=== PATIENT | female | born 1975 | race Caucasian/White ===

== ENCOUNTER 2019-06-12 01:27 | Emergency (ER) | payer MEDICARE, MEDICAID, SELFPAY ==
[2019-06-12 01:30] VITALS: BP 132/79; PULSE 72; RESP 14; TEMP 37; O2SAT 98; BMI 24.5
[2019-06-12] MEDS: SODIUM CHLORIDE 0.9% 1,000 ML 1000 ML IV ×2 (01:41→04:47)
[2019-06-12] MEDS: ONDANSETRON 4 MG/2 ML INJ IV ×2 (01:41→03:06)
--- NOTE | 2019-06-12 01:45 | ED_ITS ---
HPI - Abdominal Pain General Chief Complaint: Abdominal Pain Stated Complaint: vomiting x2 days Time Seen by Provider: 06/12/19 01:31 Source: patient Mode of arrival: Ambulatory Limitations: no limitations History of Present Illness HPI narrative: 44-year-old female nonsmoker with history of Crohn's presents with a chief complaint of nausea and vomiting with generalized abdominal pain over the past 2 days. She is currently under the care of a GI specialist in [place] but preparing to switch back to her [place] doctor. She denies any fever chills and is not dizzy nor weak or lightheaded. She has been having some loose stools and is unclear if there has been any blood but certainly not significant amount. MD complaint: abdominal pain Onset (ago): day(s) Pain Consistency: intermittent Location: diffuse Severity: moderate Quality: cramping Radiation: none Migration to: no migration Exacerbating factors: nothing Associated symptoms: nausea and vomiting Related Data Previous Rx's Medication Instructions Recorded ondansetron 4 mg PO TID-QID PRN #10 tab 06/12/19 Allergies Allergy/AdvReac Type Severity Reaction Status Date / Time adalimumab [From Humira] Allergy Verified 06/12/19 01:36 infliximab [From Remicade] Allergy Verified 06/12/19 01:36 Sulfa (Sulfonamide Allergy Verified 06/12/19 01:36 Antibiotics) Review of Systems Constitutional Constitutional: Denies chills, Denies fatigue, Denies fever(s), Denies frequent falls, Denies lethargy and Denies weakness Eyes Eyes: Denies change in vision, Denies eye discharge, Denies irritation and Denies loss of vision ENT Ears, Nose, Mouth, and Throat: Denies change in voice, Denies dizziness, Denies neck pain, Denies sore throat and Denies throat swelling Cardiovascular Cardiovascular: Denies chest pain, Denies irregular heart rhythm, Denies lightheadedness, Denies palpitations, Denies dyspnea, Denies dyspnea on exertion and Denies orthopnea Respiratory Respiratory: Denies cough, Denies dyspnea, Denies dyspnea on exertion and Denies wheezing Gastrointestinal Gastrointestinal: Reports abdominal pain, Denies change in bowel habits, Reports diarrhea, Reports nausea and Reports vomiting Genitourinary Genitourinary: Denies hematuria, Denies flank pain, Denies urinary incontinence and Denies urinary urgency Musculoskeletal Musculoskeletal: Denies back pain, Denies muscle weakness, Denies neck pain, Denies numbness and Denies tingling Integumentary/Breasts Skin/Breast: Denies pruritus, Denies erythema, Denies rash and Denies wounds Neurologic Neurologic: Denies behavioral changes, Denies confusion, Denies dizziness, De nies frequent falls, Denies loss of vision, Denies numbness, Denies tingling and Denies weakness Psychiatric Psychiatric: Denies anxiety, Denies behavioral changes, Denies confusion, Denies depression, Denies homicidal ideation and Denies suicidal ideation Endocrine Endocrine: Denies fatigue, Denies flushing and Denies palpitations Hematologic/Lymphatic Hematologic/Lymphatic: Denies easy bruising Allergic/Immunologic Allergic/Immunologic: Denies urticaria, Denies throat swelling and Denies wheezing Patient History Social History Smoking Status: Unknown if ever smoked alcohol intake frequency: holidays/special occasions only Substance Use Type: does not use Exam Narrative Exam Narrative: GENERAL: [44] year old patient appears stated age. Well-nourishe d, well-developed patient, in mild distress. Holding an emesis basin HEAD: Atraumatic. Normocephalic. EYES: Pupils equal round and reactive. Extraocular motions intact. No scleral icterus. No injection or drainage. ENT: Nose without bleeding, purulent drainage. Throat without erythema, tonsillar hypertrophy or exudate. Airway patent. NECK: Trachea midline. Non tender CARDIOVASCULAR: Regular rate and rhythm without murmurs, gallops, or rubs. RESPIRATORY: Clear to auscultation. Breath sounds equal bilaterally. No wheezes, rales, or rhonchi. GASTROINTESTINAL: Abdomen soft, mild generalized tenderness, nondistended. No guarding or peritoneal signs EXTREMITIES: No edema or joint tenderness. BACK: Nontender without deformity or crepitance. No flank tenderness. NEURO: AOx3. SKIN: No rash or erythema of visible areas Initial Vital Signs Initial Vital Signs: Vital Signs Temperature 98.6 F 06/12/19 01:30 Pulse Rate 72 06/12/19 01:30 Respiratory Rate 14 06/12/19 01:30 Blood Pressure 132/79 06/12/19 01:30 Pulse Oximetry 98 06/12/19 01:30 Course Orders Ordered: ED Orders 06/12/19 01:43 Complete Blood Count AUTO DIFF Stat Comprehensive Metabolic Panel Stat Lipase Stat Discontinued Medications Hydrocodone Bitart/Acetaminophen (Vicodin 5/325 Prepack) 1 bottle MISC SEEINSTR ONE Stop: 06/12/19 05:29 Hydromorphone HCl (Dilaudid) 0.5 mg IV NOW ONE Stop: 06/12/19 04:44 Last Admin: 06/12/19 04:47 Dose: 0.5 mg Documented by: COLLEEN Sodium Chloride (Normal Saline 0.9%) 1,000 mls @ 1,000 mls/hr IV BOLUS ONE Stop: 06/12/19 02:31 Last Infusion: 06/12/19 03:19 Dose: 0 mls/hr Documented by: Admin: 06/12/19 01:41 Dose: 1,000 mls/hr Documented by: ALEX Sodium Chloride (Normal Saline 0.9%) 1,000 mls @ 1,000 mls/hr IV BOLUS ONE Stop: 06/12/19 05:26 Last Admin: 06/12/19 04:47 Dose: 1,000 mls/hr Documented by: COLLEEN Ondansetron HCl (Zofran) 4 mg IV NOW ONE Stop: 06/12/19 01:33 Last Admin: 06/12/19 01:41 Dose: 4 mg Documented by: ALEX Ondansetron HCl (Zofran) 4 mg IV NOW ONE Stop: 06/12/19 03:01 Last Admin: 06/12/19 03:06 Dose: 4 mg Documented by: COLLEEN Ondansetron HCl (Zofran Odt Prepack) 1 bottle MISC SEEINSTR ONE Stop: 06/12/19 05:29 Vital Signs Vital signs: Vital Signs - 8 hr 06/12/19 01:30 06/12/19 03:00 Temperature 98.6 F Pulse Rate 72 61 Respiratory Rate 14 Blood Pressure 132/79 Pulse Oximetry 98 96 MDM - Abdominal Pain Lab Data Result diagrams: 06/12/19 01:43 06/12/19 01:43 Labs: Lab Results 06/12/19 06/12/19 Range/Units 01:43 01:43 WBC 13.3 H (4.5-11.0) X10^3/uL RBC 5.30 H (4.0-5.2) X10^6/uL Hgb 15.2 (12.0-16.0) g/dL Hct 44.8 (36-46) % MCV 84.6 (80-100) fL MCH 28.6 (26-34) PG MCHC 33.8 (30-36) % RDW 14.9 H (11.6-14.8) % Plt Count 469 H (150-400) X10^3/uL Neut % (Auto) 83.1 H (50-75) % Lymph % (Auto) 7.4 L (25-40) % Bert[place] % (Auto) 9.2 (3-14) % Eos % (Auto) 0.0 L (2-4) % Baso % (Auto) 0.3 (0-2) % Neut # (Auto) 05510 H (9911-3098) /uL Lymph # (Auto) 1000 L (5497-1869) /uL [place] # (Auto) 1200 H (0-900) /uL Eos # (Auto) 0 (0-450) /uL Baso # (Auto) 0 (0-100) /uL Sodium 144 (137-145) mmol/L Potassium 3.3 L (3.4-5.1) mmol/L Chloride 97 L (98-107) mmol/L Carbon Dioxide 29 (22-32) mmol/L BUN 21 H (7-17) mg/dL Creatinine 1.10 H (0.52-1.04) mg/dL Estimated GFR 54.2 L (>60) mL/min BUN/Creatinine Ratio 19.1 (6-22) Glucose 141 H (70-100) mg/dL Calcium 10.2 (8.4-10.2) mg/dL Total Bilirubin 1.0 (0.2-1.3) mg/dL AST 28 (14-36) IU/L ALT 27 (<35) IU/L Alkaline Phosphatase 83 (38-126) U/L Total Protein 9.5 H (6.3-8.2) g/dL Albumin 5.4 H (3.5-5.0) g/dL Globulin 4.1 (1.7-4.1) g/dL Albumin/Globulin Ratio 1.3 (1.0-2.8) Lipase 98 (23-300) U/L [facility] Narrative Medical decision making narrative: Multiple etiologies for patient's symptoms considered including: [Viral gastroenteritis versus Crohn's flare versus bowel obstruction versus other] Patient's symptoms improved or duration of stay with above-stated therapies. Findings and discharge diagnosis discussed with patient/family followed by verbalization of understanding Return precautions discussed with patient/family whom verbalize understanding. Discharge Plan Departure Patient Disposition: Home Clinical Impression: Vomiting Qualifiers: Vomiting type: unspecified Vomiting Intractability: non-intractable Nausea presence: with nausea Qualified Code(s): R11.2 - Nausea with vomiting, unspecified Crohn's disease Qualifiers: Gastrointestinal tract location: unspecified location Digestive disease complication type: unspecified complication Qualified Code(s): K50.919 - Crohn's disease, unspecified, with unspecified complications Instructions: Crohn's Disease (Alternative Therapy), DI for Vomiting -- Adult Activity Restrictions/Additional Instructions: *You have been diagnosed with [vomiting and Crohn's flare] *What to do: *Take medications as directed *Follow up with your primary care provider in 2-3 days, call for an appointment. Let them know you were seen in the Emergency Department and that we ask that you be seen in follow up *Return to ER if you should have any new, worsening or concerning symptoms Prescriptions: New ondansetron 4 mg tablet,disintegrating 4 mg PO TID-QID PRN (Reason: nausea and vomiting) Qty: 10 RF: 0 Referrals: Milton Partida MD [Primary Care Provider] -
[2019-06-12 02:00] LABS: Add Manual Diff / Slide Review NO; Basophils Absolute Auto 0 /uL (0-100); Basophils Percent Auto 0.3 % (0-2); Eosinophils Absolute Auto 0 /uL (0-450); Hematocrit 44.8 % (36-46); Hemoglobin 15.2 g/dL (12.0-16.0); Lymphocytes Absolute Auto 1000 /uL (1100-4500); Lymphocytes Percent Auto 7.4 % (25-40); Mean Corpuscular HGB Conc 33.8 % (30-36); Mean Corpuscular Hemoglobin 28.6 PG (26-34); Mean Corpuscular Volume 84.6 fL (80-100); Monocytes Absolute Auto 1200 /uL (0-900); Monocytes Percent Auto 9.2 % (3-14); Neutrophils Absolute Auto 11100 /uL (1500-7000); Neutrophils Percent Auto 83.1 % (50-75); Platelet Count 469 X10^3/uL (150-400); Red Cell Distribution Width 14.9 % (11.6-14.8); White Blood Cell Count 13.3 X10^3/uL (4.5-11.0)
[2019-06-12 02:04] LABS: Alanine Aminotransferase 27 IU/L (<35); Albumin 5.4 g/dL (3.5-5.0); Albumin Globulin Ratio 1.3 (1.0-2.8); Alkaline Phosphatase 83 U/L (38-126); Aspartate Aminotransferase 28 IU/L (14-36); BUN Creatinine Ratio 19.1 (6-22); Blood Urea Nitrogen 21 mg/dL (7-17); Calcium 10.2 mg/dL (8.4-10.2); Carbon Dioxide 29 mmol/L (22-32); Chloride 97 mmol/L (98-107); Estimated Glomerular Filt Rate 54.2 mL/min (>60); Globulin 4.1 g/dL (1.7-4.1); Glucose 141 mg/dL (70-100); HEMOLYSIS 16 (0-50); Lipase 98 U/L (23-300); Potassium 3.3 mmol/L (3.4-5.1); Sodium 144 mmol/L (137-145); Total Protein 9.5 g/dL (6.3-8.2)
[2019-06-12 03:00] VITALS: PULSE 61; O2SAT 96
[2019-06-12] MEDS: HYDROMORPHONE 0.5 MG INJ IV (04:47)
[2019-06-12] MEDS: HYDROCODONE/ACET 5/325 PREPACK 1 BOTTLE MISC (06:20)
[2019-06-12] MEDS: ONDANSETRON 4 MG ODT PREPACK 1 BOTTLE MISC (06:20)
[2019-06-12 06:32] VITALS: BP 121/71; PULSE 66; RESP 14; O2SAT 99
== END 2019-06-12 06:43 | disposition home or self-care (01) ==
PROVIDERS: Emergency Provider Emergency Medicine; PCP Family Medicine
DX: K50.919 Crohn's disease, unspecified, with unspecified complications (principal); R11.2 Nausea with vomiting, unspecified
CPT/HCPCS: 80053; 83690; 85025; 96374; 96375; 96376; 99283; 99284; J1170; J2405

== ENCOUNTER 2019-06-16 10:57 | Emergency (ER) | payer MEDICARE, SELFPAY ==
[2019-06-16 11:00] VITALS: BP 122/80; PULSE 112; RESP 18; TEMP 36.9; O2SAT 97
[2019-06-16 11:37] LABS: Ur Creatinine Normal (Normal); Ur Specific Gravity Normal (Normal); Urine pH Normal (Normal)
[2019-06-16 11:38] LABS: UR Morphine/Opiate cutoff 300 Negative (Negative); Urine Amphetamines Negative (Negative); Urine Barbiturates Negative (Negative); Urine Benzodiazepines Negative (Negative); Urine Cocaine Negative (Negative); Urine MDMA Negative (Negative); Urine Methadone Negative (Negative); Urine Methamphetamines Negative (Negative); Urine Oxycodone Negative (Negative); Urine Phencyclidine Negative (Negative); Urine Tetrahydrocannabinol Positive (Negative); Urine Tricyclic Antidepressant Negative (Negative)
[2019-06-16 11:48] LABS: Add Manual Diff / Slide Review NO; Basophils Absolute Auto 100 /uL (0-100); Basophils Percent Auto 0.9 % (0-2); Eosinophils Absolute Auto 100 /uL (0-450); Hematocrit 36.5 % (36-46); Hemoglobin 12.3 g/dL (12.0-16.0); Lymphocytes Absolute Auto 1700 /uL (1100-4500); Lymphocytes Percent Auto 29.1 % (25-40); Mean Corpuscular HGB Conc 33.8 % (30-36); Mean Corpuscular Hemoglobin 28.5 PG (26-34); Mean Corpuscular Volume 84.3 fL (80-100); Monocytes Absolute Auto 500 /uL (0-900); Monocytes Percent Auto 8.3 % (3-14); Neutrophils Absolute Auto 3400 /uL (1500-7000); Neutrophils Percent Auto 59.7 % (50-75); Platelet Count 316 X10^3/uL (150-400); Red Blood Cell Count 4.34 X10^6/uL (4.0-5.2); Red Cell Distribution Width 14.5 % (11.6-14.8); White Blood Cell Count 5.7 X10^3/uL (4.5-11.0)
--- NOTE | 2019-06-16 11:50 | PC.NURSE ---
MEDICINE TEACHER: pt is sleeping in room.
[2019-06-16 12:01] LABS: Acetaminophen < 10 ug/mL (10-30); Alanine Aminotransferase 24 IU/L (<35); Albumin Globulin Ratio 1.5 (1.0-2.8); Alkaline Phosphatase 58 U/L (38-126); Aspartate Aminotransferase 23 IU/L (14-36); BUN Creatinine Ratio 11.4 (6-22); Bilirubin Total 0.4 mg/dL (0.2-1.3); Blood Urea Nitrogen 8 mg/dL (7-17); Calcium 8.5 mg/dL (8.4-10.2); Carbon Dioxide 30 mmol/L (22-32); Chloride 102 mmol/L (98-107); Estimated Glomerular Filt Rate > 60.0 mL/min (>60); Ethanol (ETOH) < 10 mg/dL; Globulin 2.6 g/dL (1.7-4.1); Glucose 84 mg/dL (70-100); HEMOLYSIS < 15 (0-50); Potassium 3.4 mmol/L (3.4-5.1); Salicylate < 1.0 mg/dL (<20); Sodium 139 mmol/L (137-145); Total Protein 6.6 g/dL (6.3-8.2)
--- NOTE | 2019-06-16 12:07 | ED.PSYCH ---
HPI - Psych General Chief Complaint: Psychiatric Symptoms Stated Complaint: suicidal Time Seen by Provider: 06/16/19 12:07 Source: patient Mode of arrival: Ambulatory History of Present Illness complaint: suicidal ideation and feels depressed Onset (ago): month(s) Duration: getting worse Relieving factors: none Exacerbating factors: none If self harm: admits thoughts of self harm Details of plan: 44-year-old woman with a history of Crohn's disease and ankylosing spondylitis feelings of hopelessness and helplessness and regarding her chronic medical issues knowing that they are never going to get better and living with chronic pain. She currently is on 10 mg of oxycodone up to 4 times a day has been on the same dose for the last 6 years with no evidence of opiate use disorder. Is frustrated enough that she feels that she cannot keep herself safe at this point and states that she will jump [place] the [place]. Is tearful but appropriate been asking for help. Willing to stay in an inpatient facility Related Data Home Medications Medication Instructions Recorded Confirmed calcium carbonate [Tums] 200 mg PO DAILY 06/16/19 06/16/19 omeprazole magnesium [Prilosec OTC] 20 mg PO DAILY PRN 06/16/19 06/16/19 oxycodone 10 mg PO Q4-6H PRN 06/16/19 06/16/19 Previous Rx's Medication Instructions Recorded ondansetron 4 mg PO TID-QID PRN #10 tab 06/12/19 Allergies Allergy/AdvReac Type Severity Reaction Status Date / Time adalimumab [From Humira] Allergy Verified 06/12/19 01:36 infliximab [From Remicade] Allergy Verified 06/12/19 01:36 Sulfa (Sulfonamide Allergy Verified 06/12/19 01:36 Antibiotics) Review of Systems Review of Systems Narrative: No weight loss, chronic pain, no self-harm, Negative except for HPI, otherwise unremarkable Patient History Social History Smoking Status: Unknown if ever smoked Smoking Status: Unknown if ever smoked alcohol intake frequency: holidays/special occasions only Substance Use Type: does not use Exam Narrative Exam Narrative: Healthy appearing woman in no acute distress. Able to give a complete and full history cooperative. Well-nourished well-developed HEENT: Moist mucous membranes, normal sclera with reactive pupils, Neck: No JVD, supple Respiratory: Lungs are clear to auscultation, no wheezing no rales no rhonchi. Full and symmetrical air movement Cardiac: Regular rate and rhythm no murmurs no bruits Abdomen: Soft nontender nondistended normal bowel tones Skin: Warm and dry, no rashes Neurologic: Grossly neurologically intact with no obvious asymmetries or abnormalities Extremities: No trauma, well perfused Psych: appropriate insight and affect, sad but cooperative. Initial Vital Signs Initial Vital Signs: Vital Signs Temperature 98.4 F 06/16/19 11:00 Pulse Rate 112 H 06/16/19 11:00 Respiratory Rate 18 06/16/19 11:00 Blood Pressure 122/80 06/16/19 11:00 Pulse Oximetry 97 06/16/19 11:00 Course Course Course Narrative: Patient remains suicidal. She does not feel safe going home and states that if she were to be discharged she would find a way to [place]. Have just spoken with the health and social care teacher who will begin to look for beds for voluntary admission for suicidal ideation Orders Ordered: ED Orders 06/16/19 11:00 Urine Microscopic Stat 06/16/19 11:03 Urine Drug Screen, Rapid Stat 06/16/19 11:39 Acetaminophen Stat Complete Blood Count AUTO DIFF Stat Comprehensive Metabolic Panel Stat Ethanol (ETOH) Stat Free T4, Direct Thyroxine Stat Salicylate Stat Thyroid Stimulating Hormone Stat 06/16/19 12:21 Consult to [facility] - Engineering Technical Specialist Stat Discontinued Medications Lorazepam (Ativan) 0.5 mg PO NOW ONE Stop: 06/16/19 16:58 Last Admin: 06/16/19 17:39 Dose: 0.5 mg Documented by: BTONEHarleen Oxycodone HCl (Percolone) 10 mg PO NOW ONE Stop: 06/16/19 16:58 Last Admin: 06/16/19 17:38 Dose: 10 mg Documented by: BTONER Vital Signs Vital signs: Vital Signs - 8 hr 06/16/19 11:00 Temperature 98.4 F Pulse Rate 112 H Respiratory Rate 18 Blood Pressure 122/80 Pulse Oximetry 97 MDM - Psych Differential Diagnosis Differential diagnosis: Likely suicidal ideation and depression Medical Records Attestation: I reviewed the patient's medical records. Lab Data Result diagrams: 06/16/19 11:39 06/16/19 11:39 Labs: Lab Results 06/16/19 06/16/19 06/16/19 Range/Units 11:00 11:03 11:39 WBC 5.7 (4.5-11.0) X10^3/uL RBC 4.34 (4.0-5.2) X10^6/uL Hgb 12.3 (12.0-16.0) g/dL Hct 36.5 (36-46) % MCV 84.3 (80-100) fL MCH 28.5 (26-34) PG MCHC 33.8 (30-36) % RDW 14.5 (11.6-14.8) % Plt Count 316 (150-400) X10^3/uL Neut % (Auto) 59.7 (50-75) % Lymph % (Auto) 29.1 (25-40) % [place] % (Auto) 8.3 (3-14) % Eos % (Auto) 2.0 (2-4) % Baso % (Auto) 0.9 (0-2) % Neut # (Auto) 3400 (6471-9589) /uL Lymph # (Auto) 1700 (7854-1027) /uL [place] # (Auto) 500 (0-900) /uL Eos # (Auto) 100 (0-450) /uL Baso # (Auto) 100 (0-100) /uL Sodium (137-145) mmol/L Potassium (3.4-5.1) mmol/L Chloride (98-107) mmol/L Carbon Dioxide (22-32) mmol/L BUN (7-17) mg/dL Creatinine (0.52-1.04) mg/dL Estimated GFR (>60) mL/min BUN/Creatinine Ratio (6-22) Glucose (70-100) mg/dL Calcium (8.4-10.2) mg/dL Total Bilirubin (0.2-1.3) mg/dL AST (14-36) IU/L ALT (<35) IU/L Alkaline Phosphatase (38-126) U/L Total Protein (6.3-8.2) g/dL Albumin (3.5-5.0) g/dL Globulin (1.7-4.1) g/dL Albumin/Globulin Ratio (1.0-2.8) TSH (0.47-4.68) uIU/mL Free T4 (0.78-2.19) ng/dL Urine RBC 10-30/hpf H (0-5/HPF) Urine WBC 0-1/hpf (0-5/HPF) Ur Squamous Epith Cells 1-5 /hpf (0-5/HPF) Calcium Oxalate Crystal Moderate H Urine Bacteria None seen (None) Urine Mucus 2+ H (Negative) Ur Culture Indicated? Cult not indicated Salicylates (<20) mg/dL U Morph 300 ng/mL cutoff Negative (Negative) Ur Oxycodone Screen Negative (Negative) Urine Methadone Screen Negative (Negative) Acetaminophen (10-30) ug/mL Ur Barbiturates Screen Negative (Negative) U Tricyclic Antidepress Negative (Negative) Ur Phencyclidine Scrn Negative (Negative) Ur Amphetamines Screen Negative (Negative) U Methamphetamines Scrn Negative (Negative) Ur MDMA Scrn (Ecstasy) Negative (Negative) U Benzodiazepines Scrn Negative (Negative) Urine Cocaine Screen Negative (Negative) U Marijuana (THC) Screen Positive H (Negative) Ethyl Alcohol ( - 10) mg/dL 06/16/19 06/16/19 Range/Units 11:39 11:39 WBC (4.5-11.0) X10^3/uL RBC (4.0-5.2) X10^6/uL Hgb (12.0-16.0) g/dL Hct (36-46) % MCV (80-100) fL MCH (26-34) PG MCHC (30-36) % RDW (11.6-14.8) % Plt Count (150-400) X10^3/uL Neut % (Auto) (50-75) % Lymph % (Auto) (25-40) % [place] % (Auto) (3-14) % Eos % (Auto) (2-4) % Baso % (Auto) (0-2) % Neut # (Auto) (5812-3933) /uL Lymph # (Auto) (5479-2276) /uL [place] # (Auto) (0-900) /uL Eos # (Auto) (0-450) /uL Baso # (Auto) (0-100) /uL Sodium 139 (137-145) mmol/L Potassium 3.4 (3.4-5.1) mmol/L Chloride 102 (98-107) mmol/L Carbon Dioxide 30 (22-32) mmol/L BUN 8 (7-17) mg/dL Creatinine 0.70 (0.52-1.04) mg/dL Estimated GFR > 60.0 (>60) mL/min BUN/Creatinine Ratio 11.4 (6-22) Glucose 84 (70-100) mg/dL Calcium 8.5 (8.4-10.2) mg/dL Total Bilirubin 0.4 (0.2-1.3) mg/dL AST 23 (14-36) IU/L ALT 24 (<35) IU/L Alkaline Phosphatase 58 (38-126) U/L Total Protein 6.6 (6.3-8.2) g/dL Albumin 4.0 (3.5-5.0) g/dL Globulin 2.6 (1.7-4.1) g/dL Albumin/Globulin Ratio 1.5 (1.0-2.8) TSH 0.75 (0.47-4.68) uIU/mL Free T4 1.27 (0.78-2.19) ng/dL Urine RBC (0-5/HPF) Urine WBC (0-5/HPF) Ur Squamous Epith Cells (0-5/HPF) Calcium Oxalate Crystal Urine Bacteria (None) Urine Mucus (Negative) Ur Culture Indicated? Salicylates < 1.0 (<20) mg/dL U Morph 300 ng/mL cutoff (Negative) Ur Oxycodone Screen (Negative) Urine Methadone Screen (Negative) Acetaminophen < 10 L (10-30) ug/mL Ur Barbiturates Screen (Negative) U Tricyclic Antidepress (Negative) Ur Phencyclidine Scrn (Negative) Ur Amphetamines Screen (Negative) U Methamphetamines Scrn (Negative) Ur MDMA Scrn (Ecstasy) (Negative) U Benzodiazepines Scrn (Negative) Urine Cocaine Screen (Negative) U Marijuana (THC) Screen (Negative) Ethyl Alcohol < 10 ( - 10) mg/dL Point of Care Testing Test Results Negative Urine Dip Bedside Urine Glucose Negative Bedside Urine Bilirubin - Negative Bedside Urine Ketone - Negative Urine Specific [place] 1.015 Bedside Urine Occult Blood +++ Bedside Urine pH 6.0 Bedside Urine Protein +/- 15 Bedside Urine Urobilinogen - Negative Bedside Urine Nitrite - Negative Bedside Urine Leukocytes - Negative Esterase MDM Narrative Medical decision making narrative: Suicidal ideation with increasing helplessness and hopelessness. Cannot contract for safety and is willing to avail herself to inpatient psychiatric care. I believe that this is the most appropriate treatment at this time. Social Work has been involved plan and chart have been reviewed by [facility]. She has been accepted. Will be transferred via ambulance. Discharge Plan Departure Patient Disposition: Xfer Psychiatric Hosp Clinical Impression: Suicidal ideation Crohn's disease Qualifiers: Gastrointestinal tract location: unspecified location Digestive disease complication type: without complication Qualified Code(s): K50.90 - Crohn's disease, unspecified, without complications Ankylosing spondylitis Qualifiers: Ankylosing spondylitis location: unspecified site of spine Qualified Code(s): M45.9 - Ankylosing spondylitis of unspecified sites in spine Chronic pain Qualifiers: Chronic pain type: other chronic pain Qualified Code(s): G89.29 - Other chronic pain Referrals: Milton Partida MD [Primary Care Provider] -
[2019-06-16 12:23] LABS: Free T4, Direct Thyroxine 1.27 ng/dL (0.78-2.19)
[2019-06-16 12:37] LABS: Thyroid Stimulating Hormone 0.75 uIU/mL (0.47-4.68)
[2019-06-16 13:51] LABS: Bacteria Urine None Seen
[2019-06-16 14:05] LABS: RBC Urine 10-30/HPF (0-5/HPF); Squamous Epithelial Cell Urine 1-5 /HPF (0-5/HPF); WBC Urine 0-1/HPF (0-5/HPF)
[2019-06-16 14:06] LABS: Calcium Oxalate Crystals Urine Moderate; Culture Indicated Urine Cult Not Indicated; Mucus Urine 2+ (Negative)
--- NOTE | 2019-06-16 16:07 | CM.SWNOTE ---
director social welfare Note: EMR reviewed: Patient is a 44 yr old female who came into the ED today with S.I. and a plan to [place]. CM/RN met with patient at the bedside and explained CM/RN role. Patient was alert and oriented x3 during CM visit. Patient had a depressed and sad affect with slowed speech. Patient has been feeling sad for the last 6 months but really started feeling suicidal after coming in to the ED with her Chrones flare on 06/12/2019. Patient stated since then she has had non-stop feeling of wanting to hurt her self. patient stated she has never been had a inpatient psychiatric hospitalization. Patient is not currently taking any psychiatric medications. Patient doesn't have a psychologist or a psychiatrist and has not seen a flight agent for many years. Patient has a hx of depression and anxiety but not SI. I: Medicare Plan: Cm/RN will call to try and find a voluntary inpatient Psychiatric treatment placement for patent. LOADING SHOVEL OILER - Rubber Goods Tester Assessment LOADING SHOVEL OILER - Rubber Goods Tester Assessment Start: 06/16/19 15:52 Freq: Status: Active Protocol: Document 06/16/19 15:52 (Rec: 06/16/19 16:06 [email or web address]) LOADING SHOVEL OILER/Rubber Goods Tester Assessment Time Spent with Patient Start date 06/16/19 Visit Start Time 03:00 End date 06/16/19 Visit End Time 16:00 Total time Care Management spent on 120min patient visit-in minutes Mental Health Screening Include Onset, Duration, Intensity Presenting Problem Patient came into the ED with SI and [place] to [place]. Precipitating Event(s) Patient has Chrones disease and had a flare up on 2018 which brought her into the ED. Patient stated that she has been feeling very depressed and thoughts of Suicide have been constant since then. Also patient stated that she lost her house 6 months ago and has been homeless or renting a room at friends houses ever since. Current Behavioral Health Provider(s) Patient doesn't currently have Include Facility, Provider, Ph. # a mental health provider Psych. Hx Mental Health and Chemical Patient does smoke marjuana Dependency but denies all other substance abuse Family Hx of Behavioral Abuse patient was adopted and is not sure about her biological parents medical and behavioral health history Psychiatric Hospitalizations (date(s)/ none location) Support System(s) Patient has a boyfriend Bahman . School/Work Patient is disabled and not working Mental Status Orientation (Person/Place/Time) Patient was alert and oriented x3 at time of CM/RN visit Affect Patient had a flat and sad affect with a very depressed mood. Thought Content - Specify/Describe NA Obsessions, Delusions, Hallucinations Thought Processes (Wyhbfwh-Wffiyjea-Fwyu patients thought process was Pbzdfyke-Chdqtuhu-Htlxzkxroc- logical and coherent Lyfrmavgyqkctz-Dtljznh-Volcuosfynqs- Thought Blocking) Speech (Kckudy-Xngm-Duxdsaa-Rapid-Soft- Slowed Loud-Pressured) Motor (Ctkncn-Hiftkevbu-Fira-Other) slow Insight (Present-Partially Present- Present Impaired) Impulse Control (Adequate-Impaired) adequate Memory (Iswwapxsr-Iglpcy-Rvosny, intact Impaired-Intact) Concentration (Intact-Impaired) intact- but was excessivly sleepy and patient stated she is just exhausted. Attention (Intact-Impaired) intact Behavior (Appropriate-Inappropriate) appropriate Risk Assessment Suicidal Ideation (Plan) Yes Homicidal Ideation (Plan) No Comment Patients stated she has been having constant SI and has a plan on how she wants to . Patient stated since she doesn 't have a car she would either take the [employer] transit -free bus or [place] h[place] and jump [place].
[2019-06-16] MEDS: OXYCODONE IR 5 MG TABLET 10 MG PO (17:38)
[2019-06-16] MEDS: LORazepam 0.5 MG TABLET PO (17:39)
[2019-06-16 18:34] VITALS: BP 140/85; PULSE 85; RESP 14; O2SAT 96
== END 2019-06-16 18:50 ==
PROVIDERS: Emergency Provider Emergency Medicine; PCP Family Medicine
DX: R45.851 Suicidal ideations (principal); K50.90 Crohn's disease, unspecified, without complications; M54.9 Dorsalgia, unspecified; G89.29 Other chronic pain
CPT/HCPCS: 36415; 80053; 80305; 80320; 80329; 81003; 81015; 81025; 84439; 84443; 85025; 99282; 99283; G0480